=== PATIENT | female | born 1950 | race Caucasian/White ===

== ENCOUNTER 2018-12-02 07:16 | Day surgery (SDC) | payer MEDICARE, OTHER ==
[2018-12-01 12:19] LABS: BASOPHILS % (AUTO) 0.6 % (0-1); EOSINOPHILS # (AUTO) 0.3 X10'3 (0-0.9); HEMATOCRIT 41.1 % (35.0-45.0); LYMPHOCYTES % (AUTO) 27.9 % (21-51); MEAN CORPUSCULAR HEMOGLOBIN 32.6 PG (27.0-31.0); MEAN CORPUSCULAR VOLUME 95.9 FL (78-98); MEAN PLATELET VOLUME 9.6 FL (7.4-10.4); MONOCYTES # (AUTO) 0.7 X10'3 (0-0.9); MONOCYTES % (AUTO) 10.4 % (2-12); NEUTROPHILS # (AUTO) 4.1 X10'3 (1.8-7.7); NEUTROPHILS % (AUTO) 57.1 % (42-75); PLATELET COUNT 231 X10'3 (140-440); RED BLOOD COUNT 4.28 X10'6 (4.20-5.60); RED CELL DISTRIBUTION WIDTH 13.8 % (11.5-14.5); WHITE BLOOD COUNT 7.2 X10'3 (4.5-11.0)
[2018-12-01 12:24] LABS: ALBUMIN 4.1 G/DL (3.4-5.0); ANION GAP 9 (8-16); BLOOD UREA NITROGEN 22 MG/DL (7-18); BUN/CREATININE RATIO 20.6 (6.6-38.0); CALCIUM 9.2 MG/DL (8.5-10.1); CHLORIDE 105 MMOL/L (99-107); CREATININE 1.07 MG/DL (0.40-0.90); GLUCOSE 87 MG/DL (70-104); SODIUM 141 MMOL/L (135-145); TOTAL CARBON DIOXIDE 27.2 MMOL/L (24-32); eGFR 51 ML/MIN
[2018-12-01 12:26] LABS: INR 1.1 INR
[~2018-12-02] VITALS: Ht 172.7 cm; Wt 107.7 kg
[2018-12-02] VITALS (12 sets, daily range): BP systolic 104–133; BP diastolic 53–89
[~2018-12-02 07:16] MED LIST: AMIO200T40 PO; CARV-50 PO; DABI150C PO; DIGO250T PO; DOCU-28 PO; FURO40TA4 PO; LISI-642 PO; POTA10TA19 PO
[2018-12-02] MEDS ORDERED: MIDAZolam 5mg/ml 2ml vial IV ONE (07:55)
[2018-12-02] MEDS ORDERED: morphine 10mg/ml inj. IV ONE (07:55)
[2018-12-02] MEDS ORDERED: normal saline 1000ml 1,000 ML IV SCH (07:55)
[2018-12-02] MEDS ORDERED: amiodarone in dextrose, iso-osm 150mg/100ml bag IV ONE (07:55)
[2018-12-02] MEDS ORDERED: atropine 0.1mg/ml 10ml syringe IV ONE (07:55)
[2018-12-02] MEDS ORDERED: LISI40TA4 PO (07:59)
[2018-12-02] MEDS ORDERED: RIVA20TA PO (07:59)
[2018-12-02] MEDS ORDERED: FLEC50TA PO (08:04)
[2018-12-02] MEDS ORDERED: FURO20TA4 PO (08:04)
[2018-12-02] MEDS ORDERED: DILT240C10 PO (08:04)
== END 2018-12-02 12:10 | disposition home or self-care (01) ==
LOC: SSTAY O 07:16
PROVIDERS: ATTEND Internal Medicine Cardiovascular Disease
DX: I48.1 Persistent atrial fibrillation (principal); I50.9 Heart failure, unspecified; I42.0 Dilated cardiomyopathy; I11.0 Hypertensive heart disease with heart failure; I50.22 Chronic systolic (congestive) heart failure; I34.0 Nonrheumatic mitral (valve) insufficiency; I36.1 Nonrheumatic tricuspid (valve) insufficiency; I49.5 Sick sinus syndrome; Z88.6 Allergy status to analgesic agent; Z86.711 Personal history of pulmonary embolism; Z86.718 Personal history of other venous thrombosis and embolism
CPT/HCPCS: 36415; 80048; 85025; 85610; 92960; 93005; J0282; J0461; J2250; J2270; J7030

== ENCOUNTER 2019-05-28 05:01 | Day surgery (SDC) | payer MEDICARE, OTHER ==
[2019-05-27 09:45] LABS: BASOPHILS # (AUTO) 0.1 X10'3 (0-0.2); BASOPHILS % (AUTO) 1.3 % (0-1); EOSINOPHILS # (AUTO) 0.3 X10'3 (0-0.9); EOSINOPHILS % (AUTO) 2.6 % (0-6); HEMATOCRIT 44.4 % (35.0-45.0); HEMOGLOBIN 14.9 g/dl (12.0-16.0); LYMPHOCYTES # (AUTO) 2.1 X10'3 (1.1-4.8); LYMPHOCYTES % (AUTO) 20.3 % (21-51); MEAN CORPUSCULAR HGB CONC 33.6 g/dL (33.0-36.5); MEAN CORPUSCULAR VOLUME 98.2 FL (78-98); MEAN PLATELET VOLUME 9.6 FL (7.4-10.4); MONOCYTES # (AUTO) 0.9 X10'3 (0-0.9); NEUTROPHILS # (AUTO) 6.8 X10'3 (1.8-7.7); NEUTROPHILS % (AUTO) 66.8 % (42-75); PLATELET COUNT 221 X10'3 (140-440); RED BLOOD COUNT 4.52 X10'6 (4.20-5.60); WHITE BLOOD COUNT 10.1 X10'3 (4.5-11.0)
[2019-05-27 09:55] LABS: ALBUMIN 3.8 G/DL (3.4-5.0); ANION GAP 8 (8-16); BLOOD UREA NITROGEN 19 MG/DL (7-18); BUN/CREATININE RATIO 18.6 (6.6-38.0); CALCIUM 9.1 MG/DL (8.5-10.1); CHLORIDE 108 MMOL/L (99-107); CREATININE 1.02 MG/DL (0.40-0.90); GLUCOSE 90 MG/DL (70-104); SODIUM 142 MMOL/L (135-145); eGFR 54 ML/MIN
[2019-05-27 10:03] LABS: PARTIAL THROMBOPLASTIN TIME 29 SECONDS (22-32)
[2019-05-28] VITALS (10 sets, daily range): BP systolic 99–163; BP diastolic 62–88
[~2019-05-28] VITALS: Ht 172.7 cm; Wt 108.3 kg
[~2019-05-28 05:01] MED LIST changes: -AMIO200T40 PO; -DABI150C PO; -DIGO250T PO; +DILT240C10 PO; -DOCU-28 PO; +FLEC50TA PO; +FURO20TA4 PO; -FURO40TA4 PO; -LISI-642 PO; +LISI40TA4 PO; +RIVA20TA PO
[2019-05-28] MEDS ORDERED: LIDOcaine/PRILOcaine 5gm cream TP ONE (06:20)
[2019-05-28] MEDS ORDERED: LORazepam 0.5 MG tablet PO PRN (06:20)
[2019-05-28] MEDS ORDERED: normal saline 1,000 ML IV SCH (06:20)
[2019-05-28] MEDS ORDERED: diphenhydrAMINE 25mg capsule PO PRN (06:20)
[2019-05-28] MEDS ORDERED: nitroGLYCERIN-Tridil 50MG/D5W 250 ML IV ONE (06:42)
[2019-05-28] MEDS ORDERED: verapamil 2.5 mg/ml inj IV ONE (06:42)
[2019-05-28] MEDS ORDERED: iohexol 350 MG/ML 50ML vial IV ONE (06:43)
[2019-05-28] MEDS ORDERED: midazolam 2 mg/2 ml injection ONE (06:43)
[2019-05-28] MEDS ORDERED: LIDOcaine 1% (10mg/ml)w/preservative injection 20ml MDV ONE (06:43)
[2019-05-28] MEDS ORDERED: fentaNYL/PF 50MCG/1 ML 2ML syringe ONE (06:43)
[2019-05-28] MEDS ORDERED: heparin 1,000unit/ml 10ml vial 10 ML ONE (06:43)
[2019-05-28] MEDS ORDERED: iohexol 350MG/ML 100ml bottle IV ONE (06:44)
[2019-05-28] MEDS ORDERED: normal saline 1000ml 1,000 ML IV SCH (08:05)
[2019-05-28 13:00] LABS: ISTAT HGB ART 12.9 g/dl (12.0-16.0); ISTAT Hct ART 38 %PCV (35-48); ISTAT O2 SATURATION ARTERIAL 90 % (95-98); ISTAT SOURCE ART
[2019-05-28 13:00] LABS: ISTAT Hct MIX 38 %PCV (35-48); ISTAT O2 SATURATION MIX VENOUS 66 % (60-80); ISTAT SOURCE MIX
== END 2019-05-28 12:55 | disposition home or self-care (01) ==
LOC: SSTAY O 05:01
PROVIDERS: ATTEND Internal Medicine Cardiovascular Disease
DX: R94.39 Abnormal result of other cardiovascular function study (principal); I25.10 Atherosclerotic heart disease of native coronary artery without angina pectoris; I48.19 Other persistent atrial fibrillation; I42.0 Dilated cardiomyopathy; E83.42 Hypomagnesemia; I50.22 Chronic systolic (congestive) heart failure; Z86.711 Personal history of pulmonary embolism; Z86.718 Personal history of other venous thrombosis and embolism; F10.10 Alcohol abuse, uncomplicated; Z88.5 Allergy status to narcotic agent; Z79.899 Other long term (current) drug therapy
CPT/HCPCS: 36415; 80048; 82803; 85014; 85025; 85610; 85730; 93005; 93460; 99152; 99153; C1769; C1894; J1644; J2001; J2250; J3010; J7030; Q0163; Q9967; A4620; A5120; J3490

== ENCOUNTER 2019-07-02 06:54 | Day surgery (SDC) | payer MEDICARE, OTHER ==
[2019-07-01 17:19] LABS: ALBUMIN 3.6 G/DL (3.4-5.0); ANION GAP 9 (8-16); BASOPHILS # (AUTO) 0.1 X10'3 (0-0.2); BASOPHILS % (AUTO) 0.6 % (0-1); BLOOD UREA NITROGEN 19 MG/DL (7-18); CALCIUM 8.7 MG/DL (8.5-10.1); CHLORIDE 106 MMOL/L (99-107); EOSINOPHILS # (AUTO) 0.4 X10'3 (0-0.9); EOSINOPHILS % (AUTO) 3.1 % (0-6); GLUCOSE 99 MG/DL (70-104); HEMATOCRIT 42.4 % (35.0-45.0); HEMOGLOBIN 14.2 g/dl (12.0-16.0); LYMPHOCYTES # (AUTO) 2.7 X10'3 (1.1-4.8); LYMPHOCYTES % (AUTO) 23.8 % (21-51); MEAN CORPUSCULAR HGB CONC 33.5 g/dL (33.0-36.5); MEAN CORPUSCULAR VOLUME 98.4 FL (78-98); MEAN PLATELET VOLUME 10.3 FL (7.4-10.4); MONOCYTES # (AUTO) 1.1 X10'3 (0-0.9); NEUTROPHILS % (AUTO) 62.5 % (42-75); PLATELET COUNT 215 X10'3 (140-440); RED BLOOD COUNT 4.31 X10'6 (4.20-5.60); SODIUM 143 MMOL/L (135-145); TOTAL CARBON DIOXIDE 27.7 MMOL/L (24-32); WHITE BLOOD COUNT 11.3 X10'3 (4.5-11.0); eGFR 55 ML/MIN
[2019-07-01 17:22] LABS: POTASSIUM 3.9 MMOL/L (3.5-5.1)
[2019-07-02] VITALS (11 sets, daily range): BP systolic 105–137; BP diastolic 47–102
[~2019-07-02] VITALS: Ht 172.7 cm; Wt 107.3 kg
[2019-07-02] MEDS ORDERED: normal saline 1000ml 1,000 ML IV SCH (07:15)
[2019-07-02] MEDS ORDERED: amiodarone in dextrose, iso-osm 150mg/100ml bag IV ONE (07:25)
[2019-07-02] MEDS ORDERED: MIDAZolam 5mg/ml 2ml vial IV ONE (07:25)
[2019-07-02] MEDS ORDERED: atropine 0.1mg/ml 10ml syringe IV ONE (07:25)
[2019-07-02] MEDS ORDERED: diphenhydrAMINE 25mg capsule PO ONE (07:25)
[2019-07-02] MEDS ORDERED: LORazepam 0.5 MG tablet PO ONE (07:25)
[2019-07-02] MEDS ORDERED: morphine 10mg/ml inj. IV ONE (07:25)
[2019-07-02] MEDS ORDERED: DIGO125T78 PO (09:54)
[2019-07-02] MEDS ORDERED: FLEC100T2 PO (09:54)
== END 2019-07-02 09:55 | disposition home or self-care (01) ==
LOC: SSTAY O 06:54
PROVIDERS: ATTEND Internal Medicine Cardiovascular Disease
DX: I48.19 Other persistent atrial fibrillation (principal); I25.10 Atherosclerotic heart disease of native coronary artery without angina pectoris; I50.22 Chronic systolic (congestive) heart failure; Z79.899 Other long term (current) drug therapy; Z86.711 Personal history of pulmonary embolism; Z86.718 Personal history of other venous thrombosis and embolism; E83.42 Hypomagnesemia; F10.10 Alcohol abuse, uncomplicated; Z90.710 Acquired absence of both cervix and uterus; Z88.5 Allergy status to narcotic agent
CPT/HCPCS: 36415; 80048; 85025; 85610; 92960; 93005; 94760; J0282; J0461; J2250; J2270; J7030; Q0163

== ENCOUNTER 2020-02-17 07:45 | Day surgery (SDC) | payer MEDICARE, OTHER ==
[2020-02-16 11:17] LABS: BASOPHILS # (AUTO) 0.1 X10'3 (0-0.2); BASOPHILS % (AUTO) 0.7 % (0-1); EOSINOPHILS # (AUTO) 0.5 X10'3 (0-0.9); EOSINOPHILS % (AUTO) 5.7 % (0-6); HEMATOCRIT 44.9 % (35.0-45.0); HEMOGLOBIN 14.8 g/dl (12.0-16.0); LYMPHOCYTES # (AUTO) 2.4 X10'3 (1.1-4.8); LYMPHOCYTES % (AUTO) 25.3 % (21-51); MEAN CORPUSCULAR HEMOGLOBIN 31.9 PG (27.0-31.0); MEAN CORPUSCULAR VOLUME 96.6 FL (78-98); MEAN PLATELET VOLUME 9.7 FL (7.4-10.4); MONOCYTES # (AUTO) 0.8 X10'3 (0-0.9); MONOCYTES % (AUTO) 8.8 % (2-12); NEUTROPHILS # (AUTO) 5.6 X10'3 (1.8-7.7); NEUTROPHILS % (AUTO) 59.5 % (42-75); PLATELET COUNT 220 X10'3 (140-440); RED BLOOD COUNT 4.65 X10'6 (4.20-5.60); RED CELL DISTRIBUTION WIDTH 15.9 % (11.5-14.5); WHITE BLOOD COUNT 9.4 X10'3 (4.5-11.0)
[2020-02-16 11:22] LABS: ALBUMIN 3.6 G/DL (3.4-5.0); ANION GAP 10 (8-16); BLOOD UREA NITROGEN 22 MG/DL (7-18); CALCIUM 9.5 MG/DL (8.5-10.1); CHLORIDE 107 MMOL/L (99-107); CREATININE 1.05 MG/DL (0.40-0.90); GLUCOSE 98 MG/DL (70-104); POTASSIUM 3.9 MMOL/L (3.5-5.1); SODIUM 142 MMOL/L (135-145); TOTAL CARBON DIOXIDE 24.6 MMOL/L (24-32); eGFR 52 ML/MIN
[2020-02-16 11:26] LABS: PARTIAL THROMBOPLASTIN TIME 31 SECONDS (22-32)
[2020-02-17] VITALS (9 sets, daily range): BP systolic 134–179; BP diastolic 82–108
[~2020-02-17] VITALS: Ht 172.7 cm; Wt 102.5 kg
[~2020-02-17 07:45] MED LIST changes: -DILT240C10 PO; +FLEC100T2 PO; -FLEC50TA PO; +LAN0.125T PO
[2020-02-17] MEDS ORDERED: normal saline 1000ml 1,000 ML IV ONE (08:05)
[2020-02-17] MEDS ORDERED: cefazolin/dext.iso 2gm/50ml 50 ML IV ONE (08:05)
[2020-02-17] MEDS ORDERED: LIDOcaine 1% W/epiNEPHrine 1:100,000 20ml vial ONE (10:37)
[2020-02-17] MEDS ORDERED: fentaNYL/PF 50MCG/1 ML 2ML syringe ONE (10:37)
[2020-02-17] MEDS ORDERED: midazolam 2 mg/2 ml injection ONE ×2 (10:37→11:26)
[2020-02-17] MEDS ORDERED: heparin 1,000 UNITS/NS 500ml 500 ML ONE (10:37)
[2020-02-17] MEDS ORDERED: ceFAZolin 1000mg inj ONE (10:38)
[2020-02-17] MEDS ORDERED: verapamil 2.5 mg/ml inj IV ONE (11:32)
[2020-02-17] MEDS ORDERED: HYDROcodone/acetaminophen 5mg/325mg tablet PO PRN (13:00)
[2020-02-17] MEDS ORDERED: HYDROcodone/acetaminophen 10/325mg tab PO PRN (13:00)
[2020-02-17] MEDS ORDERED: vancomycin/NS 1 GM ADD-VANTAGE 250 ML IV ONE (14:00)
[2020-02-17] MEDS ORDERED: morphine 2 MG/ML inj. syringe IV ONE (17:35)
== END 2020-02-17 16:10 | disposition home or self-care (01) ==
LOC: SSTAY O 07:45
PROVIDERS: ATTEND Internal Medicine Cardiovascular Disease
DX: I49.5 Sick sinus syndrome (principal); I48.0 Paroxysmal atrial fibrillation; Z79.899 Other long term (current) drug therapy
CPT/HCPCS: 33208; 36415; 71046; 80048; 85025; 85610; 85730; 93005; 99152; 99153; C1785; C1898; J0690; J1644; J2250; J3010; J3370; J7030; A4565; A4620; A6449

== ENCOUNTER 2020-06-14 06:52 | Day surgery (SDC) | payer MEDICARE, OTHER ==
[2020-06-13 14:52] LABS: BASOPHILS # (AUTO) 0.1 X10'3 (0-0.2); BASOPHILS % (AUTO) 0.7 % (0-1); EOSINOPHILS # (AUTO) 0.4 X10'3 (0-0.9); EOSINOPHILS % (AUTO) 4.4 % (0-6); HEMATOCRIT 43.2 % (35.0-45.0); HEMOGLOBIN 14.5 g/dl (12.0-16.0); LYMPHOCYTES # (AUTO) 2.4 X10'3 (1.1-4.8); LYMPHOCYTES % (AUTO) 29.8 % (21-51); MEAN CORPUSCULAR HEMOGLOBIN 33.7 PG (27.0-31.0); MEAN CORPUSCULAR HGB CONC 33.6 g/dL (33.0-36.5); MEAN CORPUSCULAR VOLUME 100.1 FL (78-98); MEAN PLATELET VOLUME 9.8 FL (7.4-10.4); MONOCYTES # (AUTO) 0.6 X10'3 (0-0.9); MONOCYTES % (AUTO) 7.8 % (2-12); NEUTROPHILS # (AUTO) 4.7 X10'3 (1.8-7.7); NEUTROPHILS % (AUTO) 57.3 % (42-75); PLATELET COUNT 231 X10'3 (140-440); RED BLOOD COUNT 4.32 X10'6 (4.20-5.60); RED CELL DISTRIBUTION WIDTH 13.7 % (11.5-14.5); WHITE BLOOD COUNT 8.2 X10'3 (4.5-11.0)
[2020-06-13 15:03] LABS: ANION GAP 8 (8-16); BLOOD UREA NITROGEN 21 MG/DL (7-18); BUN/CREATININE RATIO 19.6 (6.6-38.0); CALCIUM 9.5 MG/DL (8.5-10.1); CHLORIDE 104 MMOL/L (99-107); CREATININE 1.07 MG/DL (0.40-0.90); GLUCOSE 109 MG/DL (70-104); POTASSIUM 3.7 MMOL/L (3.5-5.1); SODIUM 141 MMOL/L (135-145); TOTAL CARBON DIOXIDE 28.6 MMOL/L (24-32); eGFR 51 ML/MIN
[~2020-06-14] VITALS: Ht 172.7 cm; Wt 102.5 kg
[2020-06-14] VITALS (16 sets, daily range): BP systolic 100–168; BP diastolic 59–95
[~2020-06-14 06:52] MED LIST changes: -FLEC100T2 PO
[2020-06-14] MEDS ORDERED: diphenhydrAMINE 25mg capsule PO ONE (07:20)
[2020-06-14] MEDS ORDERED: amiodarone 150mg/dext, iso-os 100 ML IV ONE (07:20)
[2020-06-14] MEDS ORDERED: normal saline 1000ml 1,000 ML IV SCH (07:20)
[2020-06-14] MEDS ORDERED: atropine 0.1mg/ml 10ml syringe IV ONE (07:20)
[2020-06-14] MEDS ORDERED: morphine 10mg/ml inj. IV ONE (07:20)
[2020-06-14] MEDS ORDERED: MIDAZolam 1mg/ml 10ml vial IV ONE (07:20)
[2020-06-14] MEDS ORDERED: LORazepam 0.5 MG tablet PO ONE (07:20)
[2020-06-14] MEDS ORDERED: AMIO200T62 PO (07:26)
[2020-06-14] MEDS ORDERED: DOCU-21 PO (07:26)
[2020-06-14] MEDS ORDERED: METO25TA6 PO (07:26)
--- NOTE | 2020-06-14 08:42 | NUR ---
{null, Faxed pt EKG to [facility] MD. Shannan, to report prolonged ME interval. waiting for MD to respond. Pt is resting comfortably. Pt denies CP, denies SOB. VS stable as charted. Will continue to monitor. Addendum: 06/14/20 at 0846 by Kathryn Haq RN EKG reads pt is paced. }
== END 2020-06-14 10:30 | disposition home or self-care (01) ==
LOC: SSTAY O 06:52
PROVIDERS: ATTEND Internal Medicine Cardiovascular Disease
DX: I48.19 Other persistent atrial fibrillation (principal); I42.8 Other cardiomyopathies; Z95.0 Presence of cardiac pacemaker; Z88.5 Allergy status to narcotic agent; Z79.899 Other long term (current) drug therapy
CPT/HCPCS: 36415; 80048; 85025; 92960; 93005; 94799; J2250; J2270; J7030